=== PATIENT | male | born 1980 | race Caucasian/White ===

== ENCOUNTER → 2016-10-28 | Outpatient (CLI) | payer OTHER ==
[~2016-10-28] MED LIST: ALEVE220 MG PO; ASPIRIN81 M1 PO; IMDUR SA30 MG PO; Lopressor25 MG PO; NEXIUM40 MG PO; PRAVACHOL40 MG PO; TOUJEO SOL300 UNIT/1 SC; ZESTRIL40 MG PO; ZYRTEC10 MG PO
--- NOTE | ~2016-10-28 | ST ---
[place], [place] EXERCISE STRESS TEST REPORT NAME: PABLITO BARRAGAN UNIT #: [id number] ROOM: DOCTOR: MACARIO LIU MD BIRTHDATE: [birth year] DOS: 10/28/2016 REFERRING PHYSICIAN: Dr. Gaines INDICATION: Central chest pain, shortness of breath on exertion. The patient underwent standard protocol Lexiscan stress EKG. The patient's baseline EKG showed normal sinus rhythm. No ischemic changes. The patient's heart rate was 75 at baseline with a blood pressure 122/80. The patient's peak heart rate was 90 with a blood pressure 118/72. The patient had no chest pain, no ischemic changes. No arrhythmias were noted. SUMMARY OF FINDINGS: Unremarkable Lexiscan stress EKG. Please see separate report for nuclear perfusion scan results. MACARIO LIU MD CM:STRESS:EXERCISE STRESS TEST REPORT [id number] MACARIO LIU MD
== END | disposition home or self-care (01) ==
LOC: CARD 02:52
DX: I08.1 Rheumatic disorders of both mitral and tricuspid valves (principal); R53.81 Other malaise

== ENCOUNTER → 2016-11-03 | Outpatient (CLI) | payer OTHER ==
--- NOTE | ~2016-11-03 | WRIGHTHP ---
[place], [place] PATIENT HISTORY AND PHYSICAL EXAM NAME: PABLITO BARRAGAN [facility] #: [id number] UNIT #: [id number] ROOM: DOCTOR: AILYN MarioKATHY BIRTHDATE: [birth year] DOS: 11/03/2016 This is a new wound care evaluation. CHIEF COMPLAINT: Chronic open wounds near the right lower extremity. HISTORY OF PRESENT ILLNESS: This is a 35-year-old male with type 2 diabetes that is uncontrolled, who was referred to us by his primary care physician for a chronic right lower extremity wound of the anterior leg. Apparently, he has had this area for several months now that is excoriated, reddened, at times very dry and at times very weepy, that is not particularly painful, but has been getting worse recently. He did have a recent abrasion also of the area after he accidentally bumped it with the car door. He has been using Neosporin on it and hydrogen peroxide to clean the wound and has noticeable right lower extremity swelling. His mother is with him who also filled in some of the medical history and states that he has had this chronic swelling of the right lower extremity and the calf is noticeably bigger than the left leg and it has been present for several years now, it has not gotten worse recently, but has been chronically enlarged. His diabetes is markedly uncontrolled with hemoglobin A1c of over 14 per patient report. PAST MEDICAL HISTORY: Significant for multiple problems. He has type 2 diabetes, hypertension, atherosclerotic heart disease and angina. He is a type 2 diabetic, also has hyperlipidemia, has had coronary artery disease, had a cardiac catheterization in the past that showed some narrowing, but not enough to need intervention. He has undergone a recent stress test and echocardiogram. The echocardiogram report shows a normal ejection fraction and a stress test was done as well, which was normal perfusion. No evidence of myocardial ischemia or scar was noted. PAST SURGICAL HISTORY: Status post appendectomy, wisdom tooth extraction and laser eye surgery. ALLERGIES: No known drug allergies. MEDICATIONS: The current medications that he is on are multiple. He is completing a course of Bactrim Double Strength 1 tablet p.o. b.i.d., Zyrtec 10 mg daily, lisinopril 40 daily, metoprolol 25 daily, Humalog sliding scale, Aleve 220 daily every 12 hours p.r.n., aspirin 81 daily, esomeprazole 40 mg daily, isosorbide mononitrate 30 mg p.o. daily, pravastatin 40 mg p.o. daily, cephalexin 500 p.o. b.i.d. and Toujeo 60 units subq b.i.d. SOCIAL HISTORY: He is a nonsmoker, nondrinker. FAMILY HISTORY: Significant for hypertension and diabetes in his mother and maternal grandmother. SOCIAL HISTORY: He is a nonsmoker. He is . He does not drink alcohol. REVIEW OF SYSTEMS: He denies any documented fever. He has chronic chills, [place], [place] PATIENT HISTORY AND PHYSICAL EXAM NAME: PABLITO BARRAGAN UNIT #: [id number] ROOM: DOCTOR: KATHY ROBERTSON M.D. BIRTHDATE: [birth year] which are chronic and have not changed in anyway recently. He denies any nausea or vomiting, abdominal pains. He said the antibiotics he really did not notice any much improvement with the way the skin or wounds looked with the antibiotics. They do drain on occasion, mostly seems to be more noticeable after he takes a shower and after ambulating and being up on his feet more so. He has no calf pain. He has some history of chronic chest pains, which is being worked up and has some chronic dyspnea on exertion. He does not report any symptoms of claudication; however, he is not active enough to really notice that. PHYSICAL EXAMINATION: GENERAL: Shows a well-developed, well-nourished male in no acute distress, pleasant and cooperative to examination. VITAL SIGNS: Stable. Temperature is 97.7, pulse of 80, respirations 18, blood pressure is elevated at 138/94. HEENT: Extraocular movements are intact. Sclerae are anicteric. Oropharynx is clear. NECK: There is no JVD. LUNGS: Clear to auscultation. CARDIOVASCULAR: S1, S2 regular rate and rhythm. ABDOMEN: Obese, soft and nontender. EXTREMITIES: He has edema bilaterally, but much more pronounced on the right leg than the left. Pulses are difficult to feel. His foot is warm. He has no calf pain. He has got good capillary refill. He did have an ANIL of 1.37 on the right and 1.30 on the left. He does have some decreased sensation on his feet with monofilament testing noted. NEUROLOGIC: He appears alert, oriented and appropriate. He does have an open area on his right leg. It is mostly measuring 12 x 20 x 0.1, it is actually very clustered area where there is an area along the anterior and posterior leg that is circumferentially almost, but has the appearance of a stasis dermatitis where there are areas of denuded skin and loss of epidermis due to weeping and it does have scaly appearance as well as the few open areas that are noted and chronic erythema is noted as well. It does not appear acutely tender. It is not tender to touch. The patient denies any pain. It is not acutely warm either. He has a few open areas scattered throughout that measurement that are just superficial and epidermal sloughing. No debridement was done today. His most recent lab work was about a month ago. His BUN is 19, creatinine is 1.02, glucose of 382. His cholesterol was 444, triglycerides are 570, albumin is low at 2.2. LFTs were within normal limits. White count is 5, hemoglobin is 15.8, platelets are 244. I do not see a hemoglobin A1c done, but per patient report it has been over 14. ASSESSMENT AND PLAN: Chronic wounds of the right lower extremity likely secondary to venous stasis ulcerations. He does have quite a bit of edema and what appears to clinically look like stasis dermatitis. It does not appear to be acutely infected. I would like the patient to stop using Neosporin and to stop using hydrogen peroxide to clean the wound. I did explain this to the patient and his significant other who is here with him. We will go ahead and use Adaptic to the open areas and Puracol for now and have him use the Tubigrip for edema control, Aquaphor to the dry scaly areas. I would like him to go [place], [place] PATIENT HISTORY AND PHYSICAL EXAM NAME: PABLITO BARRAGAN UNIT #: [id number] ROOM: DOCTOR: KATHY ROBERTSON M.D. BIRTHDATE: [birth year] ahead and get venous and arterial studies as well and hopefully we will consider doing a compression wrap at the next time he is here. I did explain to him how important it is to go ahead and get his sugar under control. He says he has an appointment [facility] coming up. He also of note had a wound on the right plantar foot area that is measuring 0.5 x 0.1 x 0.3. Apparently, this wound is to be managed by Podiatry. He has got an appointment with them today, so no dressing was applied other than a dry gauze and Kerlix and this was not debrided today. While the patient is here, he is going to be following up with Podiatry for this wound. Follow up in the Wound Clinic in one week. KATYH ROBERTSON MD CM:HISPHYS:PATIENT HISTORY AND PHYSICAL EXAMINATION [id number] KATHY ROBERTSON M.D. 11/03/16 1348 interface
== END | disposition home or self-care (01) ==
LOC: WOUNDCARE 03:12
DX: E11.622 Type 2 diabetes mellitus with other skin ulcer (principal); I87.2 Venous insufficiency (chronic) (peripheral); L97.811 Non-pressure chronic ulcer of other part of right lower leg limited to breakdown of skin; I10 Essential (primary) hypertension; E78.5 Hyperlipidemia, unspecified; I25.10 Atherosclerotic heart disease of native coronary artery without angina pectoris

== ENCOUNTER → 2016-11-09 | Outpatient (CLI) | payer OTHER ==
--- NOTE | ~2016-11-09 | PR ---
[place], [place] PROGRESS NOTE NAME: PABLITO BARRAGAN [facility] #: [id number] UNIT #: [id number] ROOM: DOCTOR: KATHY ROBERTSON M.D. BIRTHDATE: [birth year] DOS: 11/09/2016 CHIEF COMPLAINT: Open wound of the right lower extremity. SUBJECTIVE: This is a 35-year-old male with type 2 diabetes, it is uncontrolled that was seen in the Wound Clinic last week for the first time for chronic lower extremity wound that was quite weepy and excoriated and very erythematous. We had instructed him to stop using chronic Neosporin and hydrogen peroxide. We went with an Adaptic and Puracol and Tubigrip for edema control. Venous and arterial studies were ordered. He just had them done today, so we do not have the actual results yet, but in the meantime, the wound is healed. He has no open areas, it is now weeping and it looks good. OBJECTIVE: VITAL SIGNS: Stable. Temperature is 98.2, pulse is 82, respirations 18, blood pressure is 130/82. So, the wounds have definitely healed as far as the stasis dermatitis area on the right leg. I would recommend to have him use compression stockings on a daily basis and to be removed at night. He will be discharged from the wound clinic at this point. KATHY ROBERTSON MD CM:PNTRANS [id number] KATHY ROBERTSON M.D. 11/10/16 1246 interface
[2016-11-10 10:08] LABS: CREATININE,URINE 53.4 mg/dL (Not Estab.)
== END | disposition home or self-care (01) ==
LOC: LAB 01:21 → US 01:21
PROVIDERS: Internal Medicine
DX: S91.311A Laceration without foreign body, right foot, initial encounter (principal); S91.001A Unspecified open wound, right ankle, initial encounter; I73.9 Peripheral vascular disease, unspecified; E11.65 Type 2 diabetes mellitus with hyperglycemia; X58.XXXA Exposure to other specified factors, initial encounter; Y93.89 Activity, other specified; Y92.89 Other specified places as the place of occurrence of the external cause; Y99.8 Other external cause status

== ENCOUNTER → 2016-11-15 | Outpatient (CLI) | payer OTHER ==
[2016-11-17 10:09] LABS: MICROALBUMIN, 24HR URINE 8927.1 mg/day (<30.0)
== END | disposition home or self-care (01) ==
LOC: LAB 10:12
PROVIDERS: Family Medicine Adult Medicine
DX: R80.9 Proteinuria, unspecified (principal)

== ENCOUNTER → 2017-02-23 | Outpatient (CLI) | payer OTHER | END | disposition home or self-care (01) | LOC: US 10:17 | DX: K76.89 Other specified diseases of liver (principal); K82.8 Other specified diseases of gallbladder ==

== ENCOUNTER → 2017-04-07 | Day surgery (SDC) | payer OTHER ==
[~2017-04-07] VITALS: Ht 177.8 cm; Wt 97.5 kg
[~2017-04-07] MED LIST changes: +METFORMIN1000 MG PO; +PREVACID15 M1 PO; +TRIAMTERENE & H1 CAP PO; +TRULICITY0.75 MG/0. SC
--- NOTE | ~2017-04-07 | O ---
[place], [place] OPERATIVE NOTE NAME: PABLITO BARRAGAN UNIT #: [id number] ROOM: DOCTOR: SAVANAH MARTIN MD BIRTHDATE: [birth year] DOS: 04/07/2017 GASTROENDOSCOPIC REPORT INDICATIONS: This is a 36-year-old patient who presented with chief complaint of epigastric distress, dyspepsia, right lower quadrant pain. FAMILY HISTORY: Noncontributory. ALLERGIES: No known medication. PAST MEDICAL HISTORY: Diabetes, hypertension, hyperlipidemia. PAST SURGICAL HISTORY: Lymph node resection from neck and appendectomy. PROCEDURE: Today's procedure part of investigation is panendoscopy and colonoscopy. PREMEDICATION: Versed and Diprivan. SCOPE: Olympus folding gastroscope Q10 video. REPORT: After putting the patient in left lateral position and application of lubricant to the scope, the scope was introduced. Thereafter, under direct visualization, advanced through the length of esophagus without difficulty. Gastric pouch was entered. Gastritis was seen. Duodenal bulb, second and third part within normal limits. Antral biopsy was obtained, ruling out H. pylori. FINAL DIAGNOSIS: Mild gastritis. PLAN AND DISCUSSION: We are going to proceed with colonoscopy. COLONOSCOPY INDICATIONS: The patient has presented with right lower quadrant pain, undergoing investigation. PROCEDURE: Today's procedure part of investigation is colonoscopy. PREMEDICATION: Versed and Diprivan. SCOPE: Olympus folding colonoscope 10L video. REPORT: After putting the patient in left lateral position and application of lubricant to the scope, the scope was introduced. Thereafter, under direct visualization, advanced through the length of colon without difficulty. Base of cecum explored, appendiceal orifice identified, ileocecal valve was defined. Terminal ileum was scoped. There was no pathology. Random biopsies of the colon obtained. The patient extubated, tolerated the procedure well. [place], [place] OPERATIVE NOTE NAME: PABLITO BARRAGAN UNIT #: [id number] ROOM: DOCTOR: SAVANAH MARTIN MD BIRTHDATE: [birth year] IMPRESSION: Normal colonoscopic examination, status post biopsy. Ambiguous right lower quadrant pain. PLAN AND DISCUSSION: Right lower quadrant pain could be radiating pain from nodular liver and this patient requires further followup and liver biopsies and managements in a tertiary hospital for future continuity of the care. DIET: Regular 1800 ADA. SAVANAH MARTIN MD CM:LEXIEORD:OPERATIVE NOTE [id number] SAVANAH MARTIN MD 04/07/17 0949 interface
[2017-04-07 08:02] VITALS: BP 149/97
[2017-04-07 09:15] VITALS: BP 95/51
[2017-04-07 09:29] VITALS: BP 112/61
[2017-04-07 09:44] VITALS: BP 123/72
== END ==
LOC: SDC 04-01 13:15
DX: K29.50 Unspecified chronic gastritis without bleeding (principal); R10.31 Right lower quadrant pain; E11.40 Type 2 diabetes mellitus with diabetic neuropathy, unspecified; I10 Essential (primary) hypertension; E78.5 Hyperlipidemia, unspecified; Z98.890 Other specified postprocedural states; K21.9 Gastro-esophageal reflux disease without esophagitis; Z90.49 Acquired absence of other specified parts of digestive tract; Z82.49 Family history of ischemic heart disease and other diseases of the circulatory system; Z83.3 Family history of diabetes mellitus

== ENCOUNTER → 2018-07-06 | Outpatient (CLI) | payer OTHER ==
[~2018-07-06] MED LIST changes: +ACETAMINOPHEN500 M5 PO; +CYMBALTA60 MG PO; +MULTIVITAMINS1 EAC5 PO; +PHARMASSURE FO0.4 MG PO; +TOUJEO SOL300 UNIT/1 SQ
--- NOTE | ~2018-07-06 | ST ---
[place], [place] EXERCISE STRESS TEST REPORT NAME: PABLITO BARRAGAN [facility] #: [id number] UNIT #: [id number] ROOM: DOCTOR: ERLIN DAVIES,ALONSO BIRTHDATE: [birth year] DOS: 07/06/2018 LEXISCAN STRESS TEST REASON FOR TEST: Shortness of breath. PHYSICAL EXAMINATION: NECK: Supple. LUNGS: Clear anteriorly. HEART: Regular rhythm. PROTOCOL: Lexiscan protocol. Maximum heart rate 88, peak blood pressure 130/88. SYMPTOMS: The patient is chest pain free. EKG: Resting EKG showed sinus rhythm. Stress EKG showed no ischemia, no arrhythmias. CONCLUSION: Clinically, the patient is chest pain free. EKG nonischemic. POST-STRESS COMPLICATIONS: None. The patient received total of 0.4 mg Lexiscan. ALONSO KERN MD CM:STRESS:EXERCISE STRESS TEST REPORT [id number] ALONSO KERN MD
--- NOTE | 2018-07-06 10:00 | NUR ---
INFORMED CONSENT OBTAINED FOR LEXISCAN NUCLEAR STRESS TEST WITH DR. KERN. RESTING EKG NSR WITH A RESTING HR OF 72 WITH BP OF 124/98. LUNGS CLEAR WITH SPO2 OF 100% ON ROOM AIR. PT COMPLETED A 1:00 LEXISCAN PROTOCOL RECEIVING LEXISCAN 0.4 MG IV OVER 10 SECONDS. HAD NO CHEST PAIN OR ANY EKG CHANGES. HAD C/O OF WARM FEELING AND ABDOMINAL CRAMPING THAT WAS RELIEVED IN RECOVERY. HAD A PEAK HR OF 86 WITH BP OF 124/82. LAST RECOVERY HR OF 88 WITH BP OF 130/88. AWAITING SCANNING IN STABLE CONDITION
== END | disposition home or self-care (01) ==
LOC: CARD 01:09
DX: R06.09 Other forms of dyspnea (principal)

== ENCOUNTER 2018-10-04 23:21 | Emergency (ER) | payer OTHER ==
[~2018-10-04] VITALS: Ht 175.2 cm; Wt 99.8 kg
[2018-10-05 00:40] LABS: BASO # 0.1 10*3/uL (0.0-0.1); BASO % 0.8 % (0.0-1.0); EOS # 0.2 10*3/uL (0.0-0.4); EOS % 3.3 % (1.0-4.0); HEMATOCRIT 35.9 % (42.0-52.0); HEMOGLOBIN 11.8 g/dl (14.0-18.0); LYMPH # 1.6 10*3/uL (1.3-4.4); LYMPH % 25.6 % (27.0-41.0); MEAN CORPUSCULAR HGB 28.9 pg (27.0-31.0); MEAN CORPUSCULAR HGB CONC 32.9 g/dl (33.0-37.0); MEAN PLATELET VOLUME 9.1 fl (9.6-12.3); MONO # 0.6 10*3/uL (0.1-1.0); NEUT # 3.8 10*3/uL (2.3-7.9); NEUT % 59.8 % (47.0-73.0); PLATELET COUNT AUTOMATED 242 10*3/uL (130-400); RED BLOOD COUNT 4.08 10*6/uL (4.50-5.90); RED CELL DISTRI WIDTH 12.6 % (0-14.5); WHITE BLOOD COUNT 6.3 10*3/uL (4.8-10.8)
[2018-10-05 00:54] LABS: ALBUMIN 2.2 gm/dl (3.1-4.5); CREATININE 2.43 mg/dL (0.70-1.30); POTASSIUM 4.5 mmol/L (3.5-5.1); TOTAL PROTEIN 6.2 gm/dL (6.4-8.2)
[2018-10-05 01:26] LABS: BILIRUBIN NEGATIVE (NEGATIVE); BLOOD 2+ (NEGATIVE); CLARITY CLEAR (CLEAR); COLOR YELLOW (YELLOW); GLUCOSE 1+ (NEGATIVE); KETONE NEGATIVE (NEGATIVE); LEUKO ESTERASE NEGATIVE (NEGATIVE); NITRITE NEGATIVE (NEGATIVE); SPECIFIC GRAVITY 1.015 (1.005-1.030); UROBILINOGEN 0.2 E.U./dl (0.2-1.0)
[2018-10-05 01:33] LABS: BACTERIA TRACE; EPITHELIAL CELLS 0-2; WBC 0-2 wbc/hpf (0-5)
== END 2018-10-05 02:21 | disposition home or self-care (01) ==
LOC: ED 23:21
PROVIDERS: Nurse Practitioner
DX: I12.9 Hypertensive chronic kidney disease with stage 1 through stage 4 chronic kidney disease, or unspecified chronic kidney disease (principal); N18.9 Chronic kidney disease, unspecified; E11.65 Type 2 diabetes mellitus with hyperglycemia; G43.909 Migraine, unspecified, not intractable, without status migrainosus; Z91.048 Other nonmedicinal substance allergy status; Z79.82 Long term (current) use of aspirin; Z79.899 Other long term (current) drug therapy; Z90.49 Acquired absence of other specified parts of digestive tract

== ENCOUNTER → 2018-11-22 | Outpatient (CLI) | payer OTHER ==
[~2018-11-22] MED LIST changes: +DOXYCYCLINE100 M3 PO
== END | disposition home or self-care (01) ==
LOC: CARD 14:51
DX: R06.09 Other forms of dyspnea (principal)

== ENCOUNTER → 2018-12-12 | Outpatient (CLI) | payer OTHER ==
[2018-12-12 16:09] LABS: BILIRUBIN NEGATIVE (NEGATIVE); BLOOD 2+ (NEGATIVE); CLARITY SL CLOUDY (CLEAR); COLOR YELLOW (YELLOW); GLUCOSE 2+ (NEGATIVE); KETONE NEGATIVE (NEGATIVE); LEUKO ESTERASE NEGATIVE (NEGATIVE); NITRITE NEGATIVE (NEGATIVE); UROBILINOGEN 0.2 E.U./dl (0.2-1.0)
[2018-12-12 16:11] LABS: BASO # 0.1 10*3/uL (0.0-0.1); BASO % 0.8 % (0.0-1.0); EOS # 0.3 10*3/uL (0.0-0.4); EOS % 3.9 % (1.0-4.0); HEMATOCRIT 37.1 % (42.0-52.0); HEMOGLOBIN 11.9 g/dl (14.0-18.0); LYMPH # 1.7 10*3/uL (1.3-4.4); LYMPH % 22.4 % (27.0-41.0); MEAN CELL VOLUME 89.8 fl (80.0-94.0); MEAN CORPUSCULAR HGB 28.8 pg (27.0-31.0); MEAN CORPUSCULAR HGB CONC 32.1 g/dl (33.0-37.0); MEAN PLATELET VOLUME 9.4 fl (9.6-12.3); MONO # 0.9 10*3/uL (0.1-1.0); MONO % 11.9 % (3.0-9.0); NEUT # 4.5 10*3/uL (2.3-7.9); NEUT % 60.2 % (47.0-73.0); PLATELET COUNT AUTOMATED 274 10*3/uL (130-400); RED BLOOD COUNT 4.13 10*6/uL (4.50-5.90); RED CELL DISTRI WIDTH 13.2 % (0-14.5); WHITE BLOOD COUNT 7.4 10*3/uL (4.8-10.8)
[2018-12-12 16:24] LABS: RBC 21-30 rbc/hpf (0-2)
[2018-12-12 16:25] LABS: BACTERIA TRACE; EPITHELIAL CELLS 0-2
[2018-12-12 16:43] LABS: ALBUMIN 2.3 gm/dl (3.1-4.5); CREATININE 2.85 mg/dL (0.70-1.30)
[2018-12-12 16:49] LABS: VITAMIN D, 25-HYDROXY 13.3 ng/mL (30-100)
[2018-12-12 16:50] LABS: FERRITIN 265.7 ng/mL (22.0-322.0); PTH INTACT 67.8 pg/mL (18.5-88.0)
== END | disposition home or self-care (01) ==
LOC: LAB 14:41
PROVIDERS: Internal Medicine Nephrology
DX: N25.81 Secondary hyperparathyroidism of renal origin (principal); E11.22 Type 2 diabetes mellitus with diabetic chronic kidney disease; D63.1 Anemia in chronic kidney disease; N18.3 Chronic kidney disease, stage 3 (moderate)

== ENCOUNTER → 2018-12-14 | Outpatient (CLI) | payer OTHER | END | disposition home or self-care (01) | LOC: US 11:30 → LAB 11:36 → US 11:36 | DX: R36.1 Hematospermia (principal) ==

== ENCOUNTER → 2019-01-13 | Outpatient (CLI) | payer OTHER | END | disposition home or self-care (01) | LOC: D 10:03 | DX: E11.65 Type 2 diabetes mellitus with hyperglycemia (principal) ==

== ENCOUNTER → 2019-01-31 | Outpatient (CLI) | payer OTHER | END | disposition home or self-care (01) | LOC: RAD 15:36 | DX: M25.552 Pain in left hip (principal); M54.42 Lumbago with sciatica, left side ==

== ENCOUNTER 2019-03-21 10:50 | Inpatient (IN) | payer OTHER ==
[~2019-03-21] VITALS: Ht 175.3 cm; Wt 132.0 kg
[2019-03-21] VITALS (9 sets, daily range): BP systolic 152–175; BP diastolic 88–101
[~2019-03-21 10:50] MED LIST changes: +CYMBALTA30 MG PO; -CYMBALTA60 MG PO; +TRULICITY1.5 MG/0.5 SC
[2019-03-21 11:39] LABS: BASO % 0.6 % (0.0-1.0); EOS # 0.2 10*3/uL (0.0-0.4); EOS % 4.2 % (1.0-4.0); HEMATOCRIT 35.9 % (42.0-52.0); HEMOGLOBIN 11.7 g/dl (14.0-18.0); LYMPH # 1.1 10*3/uL (1.3-4.4); LYMPH % 20.4 % (27.0-41.0); MEAN CELL VOLUME 88.2 fl (80.0-94.0); MEAN CORPUSCULAR HGB 28.7 pg (27.0-31.0); MEAN CORPUSCULAR HGB CONC 32.6 g/dl (33.0-37.0); MEAN PLATELET VOLUME 8.8 fl (9.6-12.3); MONO # 0.5 10*3/uL (0.1-1.0); MONO % 9.6 % (3.0-9.0); NEUT # 3.5 10*3/uL (2.3-7.9); NEUT % 64.8 % (47.0-73.0); PLATELET COUNT AUTOMATED 238 10*3/uL (130-400); RED BLOOD COUNT 4.07 10*6/uL (4.50-5.90); RED CELL DISTRI WIDTH 12.5 % (0-14.5); WHITE BLOOD COUNT 5.4 10*3/uL (4.8-10.8)
[2019-03-21 11:55] LABS: ALBUMIN 2.8 gm/dl (3.1-4.5); CREATININE 2.78 mg/dL (0.70-1.30); POTASSIUM 5.8 mmol/L (3.5-5.1); TOTAL PROTEIN 6.8 gm/dL (6.4-8.2)
--- NOTE | 2019-03-21 12:09 | NUR ---
PATIENT RESTING WITH SHIRT OVER HEAD. TURNED LIGHTS DOWN FOR COMFORT.
--- NOTE | 2019-03-21 15:21 | NUR ---
DR PAUL IN ROOM ASSESSING PATIENT.
--- NOTE | 2019-03-21 16:20 | NUR ---
Time: 1619 A 38 year old MALE admitted to 5E under services of GEETA PERES DO. Pt. arrived via bed from ER. Chief complaint: ACUTE ON CHRONIC RENAL FAILURE, HYPERKALEMIA. BRANNON DODSON
--- NOTE | 2019-03-21 17:47 | NUR ---
CALLED DR. BANKS ANSWERING SERVICE THEY WILL NOTIFY HIM OF CONSULT.
--- NOTE | 2019-03-21 17:51 | NUR ---
DR. GARDUNO ON THE FLOOR AWARE OF CONSULT.
--- NOTE | 2019-03-21 18:00 | NUR ---
PT AMBULATORY TO BATHROOM. IVF FROM ER INFUSING. NO C/O AT THIS TIME. CALL LIGHT IN REACH.
--- NOTE | 2019-03-21 20:00 | NUR ---
PATIENT RESTING IN BED, VOICES NO COMPLAINTS AT THIS TIME. RESPIRATIONS EASY, NON LABORED. BED IN LOWEST POSITION, CALL LIGHT WITHIN REACH. WILL CONTINUE TO MONITOR.
[2019-03-22] VITALS: BP 158/90
--- NOTE | 2019-03-22 04:00 | NUR ---
PATIENT SLEEPING, NO SIGNS OF DISTRESS. RESPIRATIONS EASY, NON LABORED. BED IN LOWEST POSITION, CALL LIGHT WITHIN REACH. WILL CONTINUE TO MONITOR.
[2019-03-22 06:19] LABS: BASO # 0.1 10*3/uL (0.0-0.1); BASO % 0.9 % (0.0-1.0); EOS # 0.3 10*3/uL (0.0-0.4); EOS % 4.4 % (1.0-4.0); HEMATOCRIT 37.8 % (42.0-52.0); HEMOGLOBIN 12.1 g/dl (14.0-18.0); LYMPH # 1.8 10*3/uL (1.3-4.4); LYMPH % 26.7 % (27.0-41.0); MEAN CELL VOLUME 89.2 fl (80.0-94.0); MEAN CORPUSCULAR HGB 28.5 pg (27.0-31.0); MEAN PLATELET VOLUME 8.9 fl (9.6-12.3); MONO # 0.7 10*3/uL (0.1-1.0); MONO % 9.8 % (3.0-9.0); NEUT # 3.9 10*3/uL (2.3-7.9); NEUT % 57.6 % (47.0-73.0); PLATELET COUNT AUTOMATED 258 10*3/uL (130-400); RED BLOOD COUNT 4.24 10*6/uL (4.50-5.90); RED CELL DISTRI WIDTH 12.7 % (0-14.5); WHITE BLOOD COUNT 6.8 10*3/uL (4.8-10.8)
[2019-03-22 06:35] LABS: CREATININE 2.37 mg/dL (0.70-1.30); PHOSPHOROUS 4.1 mg/dL (2.5-4.9); POTASSIUM 5.2 mmol/L (3.5-5.1)
[2019-03-22 06:41] LABS: THYROID STIM HORMONE (HS) 2.8 uIU/ml (0.358-4.75)
[2019-03-22 08:00] VITALS: BP 157/93
--- NOTE | 2019-03-22 08:45 | NUR ---
PT RESTING IN BED WITH HOB ELEVATED. RESP-EASY AND REGULAR. IVF INFUSING WITH NO PROBLEM. DR. COATES IN TO SEE PT. CALL LIGHT IN REACH. SEE SHIFT ASSESSMENT.
[2019-03-22] MEDS ORDERED: SYNTHROID25 MCG PO (08:52)
[2019-03-22] MEDS ORDERED: ZESTRIL10 MG PO (08:53)
[2019-03-22] MEDS ORDERED: BUMETANIDE2 MG PO (08:53)
[2019-03-22] MEDS ORDERED: ATOMOXETINE HCL60 MG PO (08:53)
[2019-03-22] MEDS ORDERED: VITAMIN D310000 UNI1 PO (08:54)
[2019-03-22] MEDS ORDERED: PRINIVIL10 MG PO (08:55)
--- NOTE | 2019-03-22 09:00 | NUR ---
Legal Document Specialist in to talk to patient. Patient states lives at home with . There are few steps in the home. Physician: lionel mckeon Pharmacy: Home health services: none Patient's level of ADLs: INDEPENDENT Patient has working utilities: all working DME: none Follow-up physician's appointment after d/c: will be made by hospitalist nurse director upon discharge Does patient want to access PORTAL?: no Discharge plan discussed with patient, he states he lives at home with , he is independent in adls and ambulation, he states he will return home when able and denies any home needs, case managment will follow. ELHAM ROPER
--- NOTE | 2019-03-22 09:04 | NUR ---
PABLITO BARRAGAN [id number] Please refer to the physician's history and physical for past medical history, comorbid conditions, and allergies. Diagnosis: ELEVATED BLOOD SUGAR Max Score: 21,LOW OR NO RISK WOUND DESCRIPTIONS: Wound Number: 1 Location of the wound: right lower extremity Type of wound: scab Thickness: Partial Size: 1.5cm x 4.7cm x <0.1cm Tunneling: none Undermining: none Sinus Tract: none Presence of Exudate: none Amount: None Color: Brown, red Odor: None Periwound Skin Appearance: Normal Wound edges: approximated Pain (associated with wound): none at time of assessment How does patient state this happened? pt stated this has been ongoing and due to his diabetes and he stated that may have bumped the areas he states he used to follow in the wound care center but doesn't do so at this time he stated if he needs to follow up he will do so and make his own appointment. Wound Number: 2 Location of the wound: left lower extremity Type of wound: scab Thickness: Partial Size: 1.5cm x 1.5cm x <0.1cm Tunneling: none Undermining: none Sinus Tract: none Presence of Exudate: none Amount: None Color: Brown, red Odor: None Periwound Skin Appearance: Normal Wound edges: approximated Pain (associated with wound): none at time of assessment How does patient state this happened? pt stated this has been ongoing and due to his diabetes and he stated that may have bumped the areas he states he used to follow in the wound care center but doesn't do so at this time he stated if he needs to follow up he will do so and make his own appointment. Wound Number: 1 Location of the wound: left ac Type of wound: skin tear Thickness: Partial Size: 0.4cm x 0.5cm x 0.1cm Tunneling: none Undermining: none Sinus Tract: none Presence of Exudate: none Amount: None Color: Red Odor: None Periwound Skin Appearance: Normal Wound edges: approximated Pain (associated with wound): none at time of assessment How does patient state this happened? pt stated this is from tape being removed last wednesday from a lab draw Wound Number: 4 Location of the wound: left 5th toe Type of wound: DTI Size: 0.6cm x 0.4cm x <0.1cm Tunneling: none Undermining: none Sinus Tract: none Presence of Exudate: none Amount: None Color: red, purple Odor: None Periwound Skin Appearance: Normal Wound edges: approximated Pain (associated with wound): none at time of assessment How does patient state this happened? pt stated this has been ongoing and due to his diabetes and he stated that may have bumped the areas he states he used to follow in the wound care center but doesn't do so at this time he stated if he needs to follow up he will do so and make his own appointment. Surface the patient is resting on: Isoflex SKIN PREVENTION RECOMMENDATION: 1. Pressure redistribution support surface as appropriate 2. Elevate heels 3. Remove boots/TEDS every shift and reapply 4. Head of bed 30 degrees as tolerated 5. Assess nutrition and hydration 6. Manage moisture 7. Avoid the use of containment devices while in bed 8. Use absorptive products on surfaces limit layers of linens on bed 9. Turn and reposition every 1-2 hours in bed and every 1 hour in chair as tolerated 10. Weight shifts every 15 minutes while up in chair 11. Offloading with pillows or device to keep heels elevated off bed 12. Monitor skin at least every shift 13. Inspect under medical devices twice a day WOUND TREATMENT RECOMMENDATIONS: Partial thicknes guidelines: Cleanse right and left lower extremity with nss and apply sureprep around the wound hydrogel to wound bed and cover with optifoam gentle every 2 days and prn for soiling. Skin tear guidelines: Cleanse left ac with nss and apply sureprep around the wound hydrogel to wound bed and cover with optifoam gentle. DTI guidelines: Apply sureprep to left 5 toe and cover with bandaid daily and prn for soiling. Patient states he will follow up in the wound care center if he needs to and his will set up the appointments he will continue using the treatments he has at home for treatments upon discharge. Heel raiser pro boots to bilateral feet while in bed.
[2019-03-22 09:13] LABS: VITAMIN D, 25-HYDROXY 37.6 ng/mL (30-100)
--- NOTE | 2019-03-22 10:44 | NUR ---
Wound care recommendations given to nurse caring for patient.
--- NOTE | 2019-03-22 11:00 | NUR ---
CALLED DR. HUITRON AWARE WOUND CARE RECOMMENDATIONS ARE AT THE DESK TO BE ORDERED.
--- NOTE | 2019-03-22 11:43 | NUR ---
CALLED DR. HUITRON MADE AWARE BP 182/98 MANUALLY. MADE AWARE PT DIDN'T HAVE LISINOPRIL FROM HOME. SHE WILL TAKE CARE OF IT.
--- NOTE | 2019-03-22 11:52 | NUR ---
MEDICATED WITH LISINOPRIL PER ORDER, SEE EMAR.
[2019-03-22 12:00] VITALS: BP 187/96
--- NOTE | 2019-03-22 12:10 | NUR ---
Discharge instructions reviewed with patient/family. Patient receptive and verbalizes understanding. Follow-up care arranged. Written instructions given to patient/family. HEPLOCK REMOVED 2X2 APPLIED. AMBULATORY OFF THE FLOOR FOR DISCHARGE WITH VISITOR AT HIS SIDE. BRANNON DODSON R
== END 2019-03-22 12:10 | disposition home or self-care (01) | DRG 422 ==
LOC: ED 10:50 → 5E 14:19 → EDHOLD 14:19 → 4E 15:52 → 5E 16:23
PROVIDERS: Physician Assistant; Student in an Organized Health Care Education/Training Program; ADMIT Internal Medicine
DX: E86.0 Dehydration (principal); N17.0 Acute kidney failure with tubular necrosis; E44.0 Moderate protein-calorie malnutrition; E87.5 Hyperkalemia; R74.8 Abnormal levels of other serum enzymes; D64.9 Anemia, unspecified; K21.9 Gastro-esophageal reflux disease without esophagitis; F41.9 Anxiety disorder, unspecified; N18.4 Chronic kidney disease, stage 4 (severe); F32.9 Major depressive disorder, single episode, unspecified; I12.9 Hypertensive chronic kidney disease with stage 1 through stage 4 chronic kidney disease, or unspecified chronic kidney disease; E11.65 Type 2 diabetes mellitus with hyperglycemia; E11.22 Type 2 diabetes mellitus with diabetic chronic kidney disease; E11.69 Type 2 diabetes mellitus with other specified complication; E11.42 Type 2 diabetes mellitus with diabetic polyneuropathy; Z88.8 Allergy status to other drugs, medicaments and biological substances; Z82.49 Family history of ischemic heart disease and other diseases of the circulatory system; Z83.3 Family history of diabetes mellitus; Z90.49 Acquired absence of other specified parts of digestive tract; Z68.41 Body mass index [BMI] 40.0-44.9, adult; Z79.899 Other long term (current) drug therapy

== ENCOUNTER → 2019-03-23 | Outpatient (CLI) | payer OTHER ==
[~2019-03-23] MED LIST changes: +ATOMOXETINE HCL60 MG PO; +BUMETANIDE2 MG PO; +PRINIVIL10 MG PO; +SYNTHROID25 MCG PO; +VITAMIN D310000 UNI1 PO; +ZESTRIL10 MG PO
[2019-03-23 15:57] LABS: BASO # 0.1 10*3/uL (0.0-0.1); BASO % 0.7 % (0.0-1.0); EOS # 0.2 10*3/uL (0.0-0.4); EOS % 2.7 % (1.0-4.0); HEMATOCRIT 34.8 % (42.0-52.0); HEMOGLOBIN 11.2 g/dl (14.0-18.0); LYMPH # 1.4 10*3/uL (1.3-4.4); LYMPH % 19.2 % (27.0-41.0); MEAN CELL VOLUME 90.2 fl (80.0-94.0); MEAN CORPUSCULAR HGB CONC 32.2 g/dl (33.0-37.0); MEAN PLATELET VOLUME 8.9 fl (9.6-12.3); MONO # 0.6 10*3/uL (0.1-1.0); MONO % 8.5 % (3.0-9.0); NEUT # 5.1 10*3/uL (2.3-7.9); NEUT % 68.5 % (47.0-73.0); PLATELET COUNT AUTOMATED 238 10*3/uL (130-400); RED BLOOD COUNT 3.86 10*6/uL (4.50-5.90); RED CELL DISTRI WIDTH 12.6 % (0-14.5); WHITE BLOOD COUNT 7.4 10*3/uL (4.8-10.8)
[2019-03-23 16:18] LABS: URINE CREATININE RANDOM 36.5 mg/dL
[2019-03-23 16:51] LABS: ALBUMIN 2.6 gm/dl (3.1-4.5); CREATININE 3.12 mg/dL (0.70-1.30); CREATININE 3.14 mg/dL (0.70-1.30); PHOSPHOROUS 4.5 mg/dL (2.5-4.9); POTASSIUM 5.3 mmol/L (3.5-5.1)
[2019-03-23 16:58] LABS: VITAMIN D, 25-HYDROXY 35.1 ng/mL (30-100)
[2019-03-23 16:59] LABS: FERRITIN 218.4 ng/mL (22.0-322.0)
[2019-03-23 17:01] LABS: COLOR STRAW (YELLOW)
[2019-03-23 17:02] LABS: BILIRUBIN NEGATIVE (NEGATIVE); BLOOD 1+ (NEGATIVE); CLARITY CLEAR (CLEAR); GLUCOSE NEGATIVE (NEGATIVE); KETONE NEGATIVE (NEGATIVE); LEUKO ESTERASE NEGATIVE (NEGATIVE); NITRITE NEGATIVE (NEGATIVE); SPECIFIC GRAVITY 1.015 (1.005-1.030); UROBILINOGEN 0.2 E.U./dl (0.2-1.0)
== END | disposition home or self-care (01) ==
LOC: LAB 15:29
PROVIDERS: General Practice; Internal Medicine Nephrology
DX: E11.22 Type 2 diabetes mellitus with diabetic chronic kidney disease (principal); I12.9 Hypertensive chronic kidney disease with stage 1 through stage 4 chronic kidney disease, or unspecified chronic kidney disease; N18.4 Chronic kidney disease, stage 4 (severe); D63.1 Anemia in chronic kidney disease; N25.81 Secondary hyperparathyroidism of renal origin; H25.811 Combined forms of age-related cataract, right eye

== ENCOUNTER → 2019-06-08 | Outpatient (CLI) | payer OTHER ==
[2019-06-08 16:13] LABS: BASO # 0.1 10*3/uL (0.0-0.1); BASO % 0.9 % (0.0-1.0); EOS # 0.2 10*3/uL (0.0-0.4); EOS % 3.5 % (1.0-4.0); HEMATOCRIT 33.6 % (42.0-52.0); HEMOGLOBIN 10.9 g/dl (14.0-18.0); LYMPH # 1.4 10*3/uL (1.3-4.4); LYMPH % 20.5 % (27.0-41.0); MEAN CELL VOLUME 86.8 fl (80.0-94.0); MEAN CORPUSCULAR HGB 28.2 pg (27.0-31.0); MEAN CORPUSCULAR HGB CONC 32.4 g/dl (33.0-37.0); MEAN PLATELET VOLUME 8.9 fl (9.6-12.3); MONO # 0.6 10*3/uL (0.1-1.0); MONO % 9.2 % (3.0-9.0); NEUT # 4.5 10*3/uL (2.3-7.9); NEUT % 64.5 % (47.0-73.0); PLATELET COUNT AUTOMATED 423 10*3/uL (130-400); RED BLOOD COUNT 3.87 10*6/uL (4.50-5.90); RED CELL DISTRI WIDTH 12.8 % (0-14.5); WHITE BLOOD COUNT 6.9 10*3/uL (4.8-10.8)
[2019-06-08 16:13] LABS: BILIRUBIN NEGATIVE (NEGATIVE); BLOOD 1+ (NEGATIVE); CLARITY CLEAR (CLEAR); COLOR YELLOW (YELLOW); GLUCOSE 3+ (NEGATIVE); KETONE NEGATIVE (NEGATIVE); SPECIFIC GRAVITY 1.015 (1.005-1.030)
[2019-06-08 16:14] LABS: LEUKO ESTERASE NEGATIVE (NEGATIVE); NITRITE NEGATIVE (NEGATIVE); UROBILINOGEN 0.2 E.U./dl (0.2-1.0)
[2019-06-08 16:23] LABS: URINE CREATININE RANDOM 34.1 mg/dL
[2019-06-08 16:31] LABS: BACTERIA TRACE; WBC 0-2 wbc/hpf (0-5)
[2019-06-08 16:32] LABS: ALBUMIN 2.1 gm/dl (3.1-4.5); CREATININE 3.3 mg/dL (0.70-1.30)
[2019-06-08 16:32] LABS: HYALINE CAST 0-2
[2019-06-08 16:34] LABS: PHOSPHOROUS 4.5 mg/dL (2.5-4.9)
[2019-06-08 16:49] LABS: VITAMIN D, 25-HYDROXY 25.1 ng/mL (30-100)
[2019-06-08 16:50] LABS: FERRITIN 268.7 ng/mL (22.0-322.0); PTH INTACT 107.7 pg/mL (18.5-88.0)
== END | disposition home or self-care (01) ==
LOC: LAB 15:30
PROVIDERS: Internal Medicine Nephrology
DX: I12.9 Hypertensive chronic kidney disease with stage 1 through stage 4 chronic kidney disease, or unspecified chronic kidney disease (principal); E11.22 Type 2 diabetes mellitus with diabetic chronic kidney disease; N18.4 Chronic kidney disease, stage 4 (severe); N25.81 Secondary hyperparathyroidism of renal origin

== ENCOUNTER 2019-07-05 16:58 | Inpatient (IN) | payer OTHER ==
[~2019-07-05] VITALS: Ht 175.3 cm; Wt 118.0 kg
[~2019-07-05 16:58] MED LIST changes: -VITAMIN D310000 UNI1 PO; +VITAMIN D350 MCG PO
[2019-07-05 17:07] VITALS: BP 205/101
[2019-07-05 17:35] LABS: BASO # 0.1 10*3/uL (0.0-0.1); BASO % 0.8 % (0.0-1.0); EOS # 0.2 10*3/uL (0.0-0.4); EOS % 2.3 % (1.0-4.0); HEMATOCRIT 31.3 % (42.0-52.0); LYMPH # 1.4 10*3/uL (1.3-4.4); LYMPH % 19.8 % (27.0-41.0); MEAN CELL VOLUME 86.7 fl (80.0-94.0); MEAN CORPUSCULAR HGB CONC 32.3 g/dl (33.0-37.0); MONO # 0.6 10*3/uL (0.1-1.0); MONO % 8.6 % (3.0-9.0); NEUT # 4.8 10*3/uL (2.3-7.9); NEUT % 67.9 % (47.0-73.0); PLATELET COUNT AUTOMATED 327 10*3/uL (130-400); RED BLOOD COUNT 3.61 10*6/uL (4.50-5.90); RED CELL DISTRI WIDTH 12.9 % (0-14.5); WHITE BLOOD COUNT 7.1 10*3/uL (4.8-10.8)
[2019-07-05 17:46] LABS: ACT PARTIAL THROMBO TIME 34.2 SECONDS (20.0-32.1); INTERNATIONAL NORM RATIO 1.1 (2.0-3.5)
[2019-07-05 17:50] LABS: ALBUMIN 2.1 gm/dl (3.1-4.5); ALKALINE PHOSPHATASE 140 U/L (45-117); BUN 58 mg/dl (7-24); CHLORIDE 107 mmol/L (98-107); CREATININE 3.31 mg/dL (0.70-1.30); LIPASE 112 U/L (73-393); POTASSIUM 5.2 mmol/L (3.5-5.1); SGPT/ALT 26 U/L (12-78); SODIUM 137 mmol/L (136-145); TOTAL PROTEIN 6.8 gm/dL (6.4-8.2)
[2019-07-05 17:55] LABS: SGOT/AST 18 IU/L (3-35)
[2019-07-05 17:56] LABS: TROPONIN I < 0.015 ng/ml (<0.045)
--- NOTE | 2019-07-05 17:59 | NUR ---
EKG COMPLETED ON PATIENT.
--- NOTE | 2019-07-05 19:10 | NUR ---
NURSE TO NURSE REPORT GIVEN TO THIS RN.PT AWAITING ADMISSION.
[2019-07-05 19:13] VITALS: BP 126/63
[2019-07-05 21:00] VITALS: BP 145/68
[2019-07-05 21:15] VITALS: BP 145/68; BP 146/73
--- NOTE | 2019-07-05 21:15 | NUR ---
A 38, admitted to , under the services of GEETA Peres DO with a diagnosis of HYPERTENSIVE EMERGENCY. Chief complaint is HIGH BLOOD PRESSURE, FLUID OVERLOAD. Patient arrived via stretcher from ER. Monitor applied. Initial assessment completed. Vital signs taken and recorded. GEETA PERES DO notified of admission to the unit. Orders received. See assessment for past medical history, medications and allergies. Patient and/or family oriented to unit. [address] visitation policy reviewed. Clothing/patient valuable form completed. KANNAN CRAIG
--- NOTE | 2019-07-05 21:49 | NUR ---
ANSWERING SERVICE NOTIFIED OF NEW CONSULT.
--- NOTE | 2019-07-05 21:52 | NUR ---
REVIEWED PATIENTS LABS WITH . NEW ORDERS RECEIVED. HE STATES HE WILL SEE PATIENT TOMORROW.
[2019-07-05] MEDS ORDERED: DULOXETINE HCL60 MG PO (23:01)
[2019-07-05] MEDS ORDERED: ISOSORBIDE MONO60 MG PO (23:04)
[2019-07-06] VITALS: BP 142/61
[2019-07-06] MEDS ORDERED: ARIPIPRAZOLE5 MG PO (00:48)
[2019-07-06] MEDS ORDERED: GUANFACINE HCL3 MG PO (00:50)
[2019-07-06] MEDS ORDERED: BUMETANIDE1 MG PO (00:51)
[2019-07-06] MEDS ORDERED: BASAG SOL SQ ×2 (00:53→00:54)
--- NOTE | 2019-07-06 00:55 | NUR ---
NOTIFIED PATIENTS MED REC UP TO DATE.
--- NOTE | 2019-07-06 05:10 | NUR ---
PABLITO BARRAGAN [id number] Please refer to the physician's history and physical for past medical history, comorbid conditions, and allergies. Diagnosis: HYPERTENSIVE EMERGENCY Max Score: 23,LOW OR NO RISK WOUND DESCRIPTIONS: Wound Number: 1 Location of the wound: Right outer pa Type of wound: traumatic Thickness: Partial Size: 0.6cm x 1.4cm x 0.1cm Tunneling: none Undermining: none Sinus Tract: none Presence of Exudate: none Amount: None Color: Red Odor: None Periwound Skin Appearance: Erythema Wound edges: approximated Pain (associated with wound): none at time of assessment How does patient state this happened? pt stated this happened about 1 week ago when his recliner popped out and hit him Wound Number: 2 Location of the wound: Right plantar aspect of foot below 5th toe Type of wound: unstageable Thickness: Full Size: 1.5cm x 1.8cm x 0.2cm Tunneling: none Undermining: none Sinus Tract: none Presence of Exudate: none Amount: None Color: Red, yellow, brown Odor: None Periwound Skin Appearance: normal Wound edges: hyperkeratotic rim Pain (associated with wound): none at time of assessment How does patient state this happened? pt stated this happened started about 1 month ago from his shoes Wound Number: 3 Location of the wound: Left outer pa Type of wound: traumatic Thickness: Full Size: 0.9cm x 2.5cm x 0.1cm Tunneling: none Undermining: none Sinus Tract: none Presence of Exudate: none Amount: None Color: Red, yellow Odor: None Periwound Skin Appearance: Erythema Wound edges: approximated Pain (associated with wound): none at time of assessment How does patient state this happened? pt stated this happened about 1 week ago when his recliner popped out and hit him Wound Number: 4 Location of the wound: Right plantar aspect of foot base great toe Type of wound: unstageable Thickness: Full Size: 0.4cm x 0.3cm x 0.1cm Tunneling: none Undermining: none Sinus Tract: none Presence of Exudate: none Amount: None Color: Red, brown Odor: None Periwound Skin Appearance: normal Wound edges: approximated Pain (associated with wound): none at time of assessment How does patient state this happened? pt stated this happened about 1 week ago when his recliner popped out and hit him Wound Number: 6 Location of the wound: Right medial aspect of great toe Type of wound: unstageable Thickness: Partial Size: 0.9cm x 0.4cm x 0.1cm Tunneling: none Undermining: none Sinus Tract: none Presence of Exudate: none Amount: None Color: Red, yellow, brown Odor: None Periwound Skin Appearance: Erythema Wound edges: approximated Pain (associated with wound): none at time of assessment How does patient state this happened? pt stated this happened about 1 week ago when his recliner popped out and hit him Wound Number: 7 Location of the wound: Right lower leg crease of foot Type of wound: medial device related pressure injury (stage 2) Thickness: Partial Size: 0.4cm x 0.9cm x <0.1cm Tunneling: none Undermining: none Sinus Tract: none Presence of Exudate: none Amount: None Color: Red Odor: None Periwound Skin Appearance: Normal Wound edges: approximated Pain (associated with wound): none at time of assessment How does patient state this happened? pt stated this happened from his boot Surface the patient is resting on: Position Pro SKIN PREVENTION RECOMMENDATION: 1. Pressure redistribution support surface as appropriate 2. Elevate heels 3. Remove boots/TEDS every shift and reapply 4. Head of bed 30 degrees as tolerated 5. Assess nutrition and hydration 6. Manage moisture 7. Avoid the use of containment devices while in bed 8. Use absorptive products on surfaces limit layers of linens on bed 9. Turn and reposition every 1-2 hours in bed and every 1 hour in chair as tolerated 10. Weight shifts every 15 minutes while up in chair 11. Offloading with pillows or device to keep heels elevated off bed 12. Monitor skin at least every shift 13. Inspect under medical devices twice a day WOUND TREATMENT RECOMMENDATIONS: Venous and arterial studies to bilateral lower extremites due to non-healing wounds, right medial aspect of great toe Consuld podiatry for possible debridement if studies allow Cleanse right outer pa, left outer pa, right plantar aspect of foot below 5th toe, right lower leg crease of foot,Right plantar aspect of foot base great toe, right medial apsect of great toe with nss and apply sureprep around the wound therahoney to wound bed and cover with optifoam gentle or bandaid every 2 days and prn for soiling Patient states he will follow up with Dr. Venegas upon discharge has an appointment on wednesday. Heel raiser pro boots to bilateral feet while in bed
--- NOTE | 2019-07-06 05:56 | NUR ---
PATIENTS SUGAR 64 WHEN CHECKED. GAVE PATIENT ORANGE JUICE AND WILL RECHECK.
--- NOTE | 2019-07-06 06:51 | NUR ---
PATIENTS SUAGR 135 ON RECHECK.
[2019-07-06 07:00] LABS: BASO # 0.1 10*3/uL (0.0-0.1); BASO % 0.8 % (0.0-1.0); EOS # 0.1 10*3/uL (0.0-0.4); EOS % 2.3 % (1.0-4.0); HEMATOCRIT 30.4 % (42.0-52.0); LYMPH # 1.2 10*3/uL (1.3-4.4); LYMPH % 20.5 % (27.0-41.0); MEAN CELL VOLUME 87.1 fl (80.0-94.0); MEAN CORPUSCULAR HGB 27.8 pg (27.0-31.0); MEAN CORPUSCULAR HGB CONC 31.9 g/dl (33.0-37.0); MEAN PLATELET VOLUME 8.7 fl (9.6-12.3); MONO # 0.5 10*3/uL (0.1-1.0); MONO % 8.2 % (3.0-9.0); NEUT # 4.1 10*3/uL (2.3-7.9); NEUT % 67.7 % (47.0-73.0); PLATELET COUNT AUTOMATED 284 10*3/uL (130-400); RED BLOOD COUNT 3.49 10*6/uL (4.50-5.90); RED CELL DISTRI WIDTH 13.2 % (0-14.5)
[2019-07-06 07:29] LABS: CREATININE 3.2 mg/dL (0.70-1.30); POTASSIUM 4.5 mmol/L (3.5-5.1)
[2019-07-06 09:00] VITALS: BP 170/98
--- NOTE | 2019-07-06 09:00 | NUR ---
Washing Machine Mechanic in to talk to patient. Patient states lives at home with . There are 4 steps in the home. Physician: naty sands [facility] [place] [facility]: none Patient's level of ADLs: INDEPENDENT Patient has working utilities: all working DME: none Follow-up physician's appointment after d/c: will be made by hospitalist nurse director upon discharge Does patient want to access PORTAL?: no Discharge plan discussed with patient, he states he lives at home with his , he is independent in adls and ambulation, he states he will return home when medically stable and denies any home needs, case management will follow. ELHAM ROPER
--- NOTE | 2019-07-06 09:02 | NUR ---
Dr. Rodriguez notified of wound care recommendations.
--- NOTE | 2019-07-06 09:35 | NUR ---
podiatry resident aware of consult
--- NOTE | 2019-07-06 09:43 | NUR ---
podiatry in to see patient, when podiatry finished seeing patient, pt to ultrasound via wheelchair
--- NOTE | 2019-07-06 09:44 | NUR ---
tele removed per order
--- NOTE | 2019-07-06 11:06 | NUR ---
RETURN FROM ULTRASOUND
[2019-07-06 12:00] VITALS: BP 170/90
--- NOTE | 2019-07-06 12:34 | NUR ---
CALLED DR. BANKS OFFICE TO NOTIFY OF ELEVATED BLOOD PRESSURE OF 168/98 AFTER BLOOD PRESSURE MEDICATION TODAY. AWAITING CALL BACK
--- NOTE | 2019-07-06 12:47 | NUR ---
DR. ALAMO HERE TO SEE PATIENT, DISCUSS PATIENT. WILL PLACE ORDERS
[2019-07-06 16:00] VITALS: BP 168/95
--- NOTE | 2019-07-06 19:48 | NUR ---
24 HR chart check completed.
[2019-07-06 20:00] VITALS: BP 154/88
--- NOTE | 2019-07-06 20:00 | NUR ---
ambulating abt room, no distress noted. respirations easy. lungs diminished, clear. pulse ox 100% ra. +1 pitting ble edema. call light within reach. no voiced complaints
--- NOTE | 2019-07-07 00:17 | NUR ---
requested and received tylenol per prn order for complaints of generalized aches and pain rating a 5. call light within reach. will monitor for effectiveness
[2019-07-07 01:44] VITALS: BP 126/68
--- NOTE | 2019-07-07 02:00 | NUR ---
meds appear effective. sleeping. respirations easy. call light within reach
--- NOTE | 2019-07-07 06:20 | NUR ---
BSG 56 WITH REPEAT 50. GIVEN D10 PER PRN ORDER. WILL MONITOR
[2019-07-07 06:31] LABS: BASO # 0.1 10*3/uL (0.0-0.1); BASO % 0.7 % (0.0-1.0); EOS # 0.2 10*3/uL (0.0-0.4); EOS % 2.5 % (1.0-4.0); HEMATOCRIT 34.4 % (42.0-52.0); LYMPH # 2.4 10*3/uL (1.3-4.4); LYMPH % 31.5 % (27.0-41.0); MEAN CELL VOLUME 86.6 fl (80.0-94.0); MEAN CORPUSCULAR HGB 27.2 pg (27.0-31.0); MEAN CORPUSCULAR HGB CONC 31.4 g/dl (33.0-37.0); MEAN PLATELET VOLUME 8.8 fl (9.6-12.3); MONO # 0.9 10*3/uL (0.1-1.0); MONO % 11.1 % (3.0-9.0); NEUT # 4.1 10*3/uL (2.3-7.9); NEUT % 53.8 % (47.0-73.0); PLATELET COUNT AUTOMATED 360 10*3/uL (130-400); RED BLOOD COUNT 3.97 10*6/uL (4.50-5.90); RED CELL DISTRI WIDTH 13.1 % (0-14.5); WHITE BLOOD COUNT 7.7 10*3/uL (4.8-10.8)
[2019-07-07 06:47] LABS: ALBUMIN 2.2 gm/dl (3.1-4.5); CREATININE 3.35 mg/dL (0.70-1.30); POTASSIUM 4.5 mmol/L (3.5-5.1)
--- NOTE | 2019-07-07 07:00 | NUR ---
BSG 89. PATIENT ASYMPTOMATIC. TRANSPORTED OFF FLOOR VIA FOR TESTING
[2019-07-07 08:00] VITALS: BP 185/87
--- NOTE | 2019-07-07 08:09 | NUR ---
PHYSICAL THERAPY Screen received pt admitted from home with hypertensive urgency if pt has a deline in function from baseline please consult PT thank you. Camila Lincoln PT
--- NOTE | 2019-07-07 08:14 | NUR ---
Nursing screen received and chart reviewed. Patient admitted for hypertensive emergency. If patient has a decline in ADLs, transfers, or mobility, please send OT orders. Thank you. Nuris Gatica, OTR/L
--- NOTE | 2019-07-07 10:51 | NUR ---
Nutritional Support Services Note: Pt is eating 100% of all meals. Renal diet as ordered. Wound noted to outer pa. Encouraged healthy eating. BS control and weight loss. Healthy choices and proper portion sizes discussed. Will follow if needed. No other nutrition intervention needed at this time. Priscilla Cruz Rdn Ld
[2019-07-07 12:00] VITALS: BP 153/85
[2019-07-07 16:00] VITALS: BP 156/79
[2019-07-07 20:00] VITALS: BP 151/89
--- NOTE | 2019-07-07 20:00 | NUR ---
AMBULATING ABOUT IN ROOM. NO DISTRESS NOTED. RESPIRATIONS EASY. LUNGS DIMINISHED, CLEAR. PULSE OX 99% RA. +1 BLE EDEMA. DRESSING INTACT RIGHT FOOT. CALL LIGHT WITHIN REACH. NO VOICED COMPLAINTS
--- NOTE | 2019-07-07 20:10 | NUR ---
24 HR chart check completed.
--- NOTE | 2019-07-07 21:26 | NUR ---
MEDICATED WITH TYLENOL PER PRN ORDER FOR COMPLAINTS OF GENERALIZED ACHES AND PAINS RATING A 5. CALL LIGHT WITHIN REACH. WILL MONITOR FOR EFFECTIVENESS
--- NOTE | 2019-07-07 23:10 | NUR ---
STATES RELIEF FROM EARLIER MEDS. RESPIRATIONS EASY. CALL LIGHT WITHIN REACH. NO FURTHER VOICED COMPLAINTS
[2019-07-08] VITALS: BP 127/77
--- NOTE | 2019-07-08 | NUR ---
SLEEPING. NO DISTRESS NOTED. RESPIRATIONS EASY. VSS. CALL LIGHT WITHIN REACH
[2019-07-08 06:13] LABS: BASO # 0.1 10*3/uL (0.0-0.1); BASO % 0.5 % (0.0-1.0); EOS # 0.1 10*3/uL (0.0-0.4); EOS % 0.6 % (1.0-4.0); HEMATOCRIT 34.9 % (42.0-52.0); LYMPH # 1.3 10*3/uL (1.3-4.4); LYMPH % 13.9 % (27.0-41.0); MEAN CORPUSCULAR HGB 27.2 pg (27.0-31.0); MEAN CORPUSCULAR HGB CONC 31.2 g/dl (33.0-37.0); MEAN PLATELET VOLUME 8.8 fl (9.6-12.3); MONO # 0.6 10*3/uL (0.1-1.0); MONO % 5.9 % (3.0-9.0); NEUT # 7.3 10*3/uL (2.3-7.9); NEUT % 78.7 % (47.0-73.0); PLATELET COUNT AUTOMATED 328 10*3/uL (130-400); RED BLOOD COUNT 4.01 10*6/uL (4.50-5.90); RED CELL DISTRI WIDTH 12.9 % (0-14.5); WHITE BLOOD COUNT 9.3 10*3/uL (4.8-10.8)
--- NOTE | 2019-07-08 06:30 | NUR ---
0530: BSG 62, REPEAT 56. PATIENT ASYMTPOMATIC. PROVIDED WITH OJ AT REQUEST INSTEAD OF IV DEXTROSE. REPEAT BSG 166.
[2019-07-08 06:38] LABS: CREATININE 3.44 mg/dL (0.70-1.30); POTASSIUM 4.4 mmol/L (3.5-5.1)
[2019-07-08 08:00] VITALS: BP 151/85
--- NOTE | 2019-07-08 09:00 | NUR ---
MORNING ASSESSMENT COMPLETE. PT DENIES C/O AT THIS TIME. WILL CONITNUE TO MONITOR PT.
[2019-07-08 12:00] VITALS: BP 167/88
[2019-07-08] MEDS ORDERED: METOPROLOL TART50 M1 PO (14:08)
[2019-07-08] MEDS ORDERED: BUMETANIDE2 MG PO (14:08)
[2019-07-08] MEDS ORDERED: APRESOLINE25 MG PO (14:08)
--- NOTE | 2019-07-08 15:02 | NUR ---
[facility] Discharge instructions reviewed with patient/family. Patient receptive and verbalizes understanding. Follow-up care arranged. Written instructions given to patient/family. TRISHA ELIZALDE
== END 2019-07-08 15:02 | disposition home or self-care (01) | DRG 199 ==
LOC: ED 16:58 → 4E 18:43 → EDHOLD 18:43 → 4E 19:32
PROVIDERS: Emergency Medicine; Internal Medicine; Student in an Organized Health Care Education/Training Program; ADMIT Internal Medicine
DX: I16.1 Hypertensive emergency (principal); E87.5 Hyperkalemia; E43 Unspecified severe protein-calorie malnutrition; E83.41 Hypermagnesemia; D64.9 Anemia, unspecified; E11.22 Type 2 diabetes mellitus with diabetic chronic kidney disease; K21.9 Gastro-esophageal reflux disease without esophagitis; N18.4 Chronic kidney disease, stage 4 (severe); I13.0 Hypertensive heart and chronic kidney disease with heart failure and stage 1 through stage 4 chronic kidney disease, or unspecified chronic kidney disease; I50.9 Heart failure, unspecified; E11.42 Type 2 diabetes mellitus with diabetic polyneuropathy; E11.51 Type 2 diabetes mellitus with diabetic peripheral angiopathy without gangrene; I87.2 Venous insufficiency (chronic) (peripheral); F41.9 Anxiety disorder, unspecified; F32.9 Major depressive disorder, single episode, unspecified; L85.9 Epidermal thickening, unspecified; R79.89 Other specified abnormal findings of blood chemistry; E66.01 Morbid (severe) obesity due to excess calories; S80.812A Abrasion, left lower leg, initial encounter; S80.811A Abrasion, right lower leg, initial encounter; X58.XXXA Exposure to other specified factors, initial encounter; Y93.89 Activity, other specified; Y92.89 Other specified places as the place of occurrence of the external cause; Y99.8 Other external cause status; Z83.3 Family history of diabetes mellitus; Z79.82 Long term (current) use of aspirin; Z79.899 Other long term (current) drug therapy; Z79.4 Long term (current) use of insulin; Z68.41 Body mass index [BMI] 40.0-44.9, adult; Z91.048 Other nonmedicinal substance allergy status

== ENCOUNTER 2019-07-23 15:16 | Inpatient (IN) | payer OTHER ==
[~2019-07-23] VITALS: Ht 175.2 cm; Wt 127.0 kg
[~2019-07-23 15:16] MED LIST changes: +APRESOLINE25 MG PO; +ARIPIPRAZOLE5 MG PO; +BASAG SOL SQ; +BUMETANIDE1 MG PO; +DULOXETINE HCL60 MG PO; +GUANFACINE HCL3 MG PO; +ISOSORBIDE MONO60 MG PO; +METOPROLOL TART50 M1 PO
[2019-07-23 15:45] LABS: BASO # 0.1 10*3/uL (0.0-0.1); BASO % 0.6 % (0.0-1.0); EOS # 0.2 10*3/uL (0.0-0.4); EOS % 1.6 % (1.0-4.0); HEMATOCRIT 30.5 % (42.0-52.0); LYMPH # 1.1 10*3/uL (1.3-4.4); LYMPH % 8.4 % (27.0-41.0); MEAN CELL VOLUME 88.2 fl (80.0-94.0); MEAN CORPUSCULAR HGB 27.5 pg (27.0-31.0); MEAN CORPUSCULAR HGB CONC 31.1 g/dl (33.0-37.0); MEAN PLATELET VOLUME 8.6 fl (9.6-12.3); MONO # 1.2 10*3/uL (0.1-1.0); NEUT # 10.6 10*3/uL (2.3-7.9); NEUT % 80.1 % (47.0-73.0); PLATELET COUNT AUTOMATED 400 10*3/uL (130-400); RED BLOOD COUNT 3.46 10*6/uL (4.50-5.90); RED CELL DISTRI WIDTH 13.3 % (0-14.5); WHITE BLOOD COUNT 13.2 10*3/uL (4.8-10.8)
[2019-07-23 15:50] VITALS: BP 172/107
[2019-07-23 15:56] LABS: ACT PARTIAL THROMBO TIME 35.9 SECONDS (20.0-32.1); INTERNATIONAL NORM RATIO 1.1 (2.0-3.5)
[2019-07-23 16:01] LABS: ALBUMIN 2.5 gm/dl (3.1-4.5); ALKALINE PHOSPHATASE 164 U/L (45-117); BUN 77 mg/dl (7-24); CHLORIDE 102 mmol/L (98-107); CREATININE 4.83 mg/dL (0.70-1.30); POTASSIUM 4.8 mmol/L (3.5-5.1); SGOT/AST 20 IU/L (3-35); SGPT/ALT 33 U/L (12-78); SODIUM 135 mmol/L (136-145); TOTAL PROTEIN 7.6 gm/dL (6.4-8.2); TROPONIN I < 0.015 ng/ml (<0.045)
[2019-07-23] MEDS ORDERED: Zaroxolyn,Diul2.5 MG PO (16:52)
[2019-07-23] MEDS ORDERED: ACULAR 0.5%3 ML OPH (16:53)
[2019-07-23] MEDS ORDERED: OFLOXACIN 5 ML5 M1 OP (16:54)
[2019-07-23] MEDS ORDERED: TRULICITY1.5 MG/0.5 SC (16:54)
[2019-07-23] MEDS ORDERED: BUMETANIDE1 MG PO (16:55)
[2019-07-23] MEDS ORDERED: Lopressor25 MG PO (16:57)
[2019-07-23] MEDS ORDERED: PRAVASTATIN SOD40 MG PO (17:01)
[2019-07-23 17:21] VITALS: BP 140/77
--- NOTE | 2019-07-23 17:36 | NUR ---
CONSULT CALLED TO ANSWERING SERVICE.
[2019-07-23 18:26] VITALS: BP 159/87
--- NOTE | 2019-07-23 18:26 | NUR ---
A 38, admitted to 5E, under the services of GEETA Peres DO with a diagnosis of SUBHASH SUPERIMPOSED ON CKD. Chief complaint is CHEST PAIN, NASUEA/VOMITING. Patient arrived via ambulance from ER. Monitor applied. Initial assessment completed. Vital signs taken and recorded. GEETA PERES DO notified of admission to the unit. Orders received. See assessment for past medical history, medications and allergies. Patient and/or family oriented to unit. [facility] visitation policy reviewed. Clothing/patient valuable form completed. PARAG MCNEILL
--- NOTE | 2019-07-23 19:03 | NUR ---
ATTEMPTED TO CALL FOR WOUND CARE ORDERS. NO ANSWER.
--- NOTE | 2019-07-23 19:06 | NUR ---
CONSULT CALLED TO . AWAITING CALL BACK.
--- NOTE | 2019-07-23 19:42 | NUR ---
AWARE OF CONSULT.
[2019-07-23 20:00] VITALS: BP 148/72
--- NOTE | 2019-07-23 20:08 | NUR ---
CALLED BACK. NEW ORDERS FOR LEXISCAN TOMORROW RECD.
--- NOTE | 2019-07-23 20:14 | NUR ---
NOTIFIED DR. TATE OF PATIENT MED REC UP TO DATE. HE STATED TO CALL HIM IF HIS BLOOD PRESSURE STARTS TO RISE. NOTIFIED HIM OF LAST BLOOD PRESSURE. HE STATES THAT'S FINE. NO NEW ORDERS RECIEVED
[2019-07-24] VITALS: BP 157/79
[2019-07-24 06:31] LABS: BASO # 0.1 10*3/uL (0.0-0.1); BASO % 0.5 % (0.0-1.0); EOS # 0.2 10*3/uL (0.0-0.4); EOS % 1.5 % (1.0-4.0); HEMATOCRIT 28.3 % (42.0-52.0); LYMPH # 0.9 10*3/uL (1.3-4.4); LYMPH % 9.3 % (27.0-41.0); MEAN CORPUSCULAR HGB CONC 30.4 g/dl (33.0-37.0); MONO % 9.4 % (3.0-9.0); NEUT % 79.1 % (47.0-73.0); PLATELET COUNT AUTOMATED 337 10*3/uL (130-400); RED BLOOD COUNT 3.18 10*6/uL (4.50-5.90); RED CELL DISTRI WIDTH 13.3 % (0-14.5); WHITE BLOOD COUNT 10.1 10*3/uL (4.8-10.8)
[2019-07-24 06:57] LABS: ACT PARTIAL THROMBO TIME 37.8 SECONDS (20.0-32.1); INTERNATIONAL NORM RATIO 1.1 (2.0-3.5)
[2019-07-24 07:03] LABS: ALBUMIN 2.2 gm/dl (3.1-4.5); CREATININE 4.69 mg/dL (0.70-1.30); FREE T4 1.16 ng/dl (0.76-1.46); POTASSIUM 4.4 mmol/L (3.5-5.1); TOTAL PROTEIN 7.1 gm/dL (6.4-8.2)
[2019-07-24 07:08] LABS: THYROID STIM HORMONE (HS) 1.35 uIU/ml (0.358-4.75)
[2019-07-24 07:30] LABS: VITAMIN D, 25-HYDROXY 19.1 ng/mL (30-100)
[2019-07-24 08:00] VITALS: BP 138/82
--- NOTE | 2019-07-24 10:35 | NUR ---
INFORMED CONSENT SIGNED FOR LEXISCAN STRESS TEST WITH DR. LIU. RESTING EKG NSR, HR 84, BP 156/90. PULSE OX 99% AND LUNGS CLEAR BILATERALLY. COMPLETED ONE MINUTE OF LEXISCAN PROTOCOL RECEIVING LEXISCAN 0.4MG OVER 10 SEC[address] NO ARRHYTHMI[address] OR ST CHANGES NOTED. PT C/O ODD FEELING. LAST RECOVERY HR 89, BP 150/80. WAITING NUCLEAR SCANNING IN STABLE CONDITION.
[2019-07-24 12:00] VITALS: BP 169/93
--- NOTE | 2019-07-24 12:42 | NUR ---
PATIENT IS BACK FROM STRESS TEST. BSG PERFORMED. PATIENT CAUGHT UP ON MORNING MEDICATIONS. NO COMPLAINTS VOICED AT THIS TIME.
--- NOTE | 2019-07-24 12:45 | NUR ---
WOUND DRESSINGS TO BILATERAL FEET. NOT DONE BECAUSE PODIATRY HAS BEEN WAITING FOR PATIENT TO RETURN TO SEE WOUNDS. AWAITING ORDERS.
[2019-07-24 14:00] VITALS: BP 169/93
[2019-07-24 16:00] VITALS: BP 149/79
--- NOTE | 2019-07-24 16:18 | NUR ---
PT RESTING IN BED. NO DISTRESS NOTED. WILL MONITOR NO VOICED C/O
--- NOTE | 2019-07-24 19:30 | NUR ---
REPORT RECEIVED. PT LYING IN BED. DENIES ANY DISTRESS. CALL LIGHT IN REACH
[2019-07-24 20:00] VITALS: BP 166/90
--- NOTE | 2019-07-24 21:30 | NUR ---
PT ON IPAD AT THIS TIME. NO COMPLAINTS VOICED, CALL LIGHT IN REACH
--- NOTE | 2019-07-24 23:30 | NUR ---
PT LYING IN BED WATHING TV. NO S/S OF DISTRESS NOTED, CALL LIGHT IN REACH
[2019-07-25] VITALS (7 sets, daily range): BP systolic 142–178; BP diastolic 74–106
--- NOTE | 2019-07-25 01:56 | NUR ---
TYLENOL GIVEN PER REQUEST FOR COMPLAINTS OF BILATERAL FEET ACHES. WILL MONITOR EFFECTIVENESS
--- NOTE | 2019-07-25 02:35 | NUR ---
TYLENOL EFFECTIVE FOR PAIN PER PT
[2019-07-25 02:37] LABS: BILIRUBIN NEGATIVE (NEGATIVE); BLOOD 2+ (NEGATIVE); CLARITY CLEAR (CLEAR); COLOR STRAW (YELLOW); GLUCOSE 1+ (NEGATIVE); KETONE NEGATIVE (NEGATIVE); LEUKO ESTERASE NEGATIVE (NEGATIVE); NITRITE NEGATIVE (NEGATIVE); PH 6.5 (5.0-9.0); SPECIFIC GRAVITY 1.015 (1.005-1.030); UROBILINOGEN 0.2 E.U./dl (0.2-1.0)
[2019-07-25 03:03] LABS: BACTERIA 1+; COARSE GRANULAR CAST 0-2; RBC 31-40 rbc/hpf (0-2)
--- NOTE | 2019-07-25 04:30 | NUR ---
PT SLEEPING AT THIS TIME, CALL LIGHT IN REACH
[2019-07-25 08:05] LABS: BASO % 0.6 % (0.0-1.0); EOS # 0.3 10*3/uL (0.0-0.4); EOS % 4.4 % (1.0-4.0); HEMATOCRIT 26.3 % (42.0-52.0); LYMPH # 1.2 10*3/uL (1.3-4.4); LYMPH % 17.2 % (27.0-41.0); MEAN CELL VOLUME 88.9 fl (80.0-94.0); MEAN CORPUSCULAR HGB 27.4 pg (27.0-31.0); MEAN CORPUSCULAR HGB CONC 30.8 g/dl (33.0-37.0); MONO # 0.7 10*3/uL (0.1-1.0); NEUT # 4.9 10*3/uL (2.3-7.9); NEUT % 67.5 % (47.0-73.0); PLATELET COUNT AUTOMATED 330 10*3/uL (130-400); RED BLOOD COUNT 2.96 10*6/uL (4.50-5.90); RED CELL DISTRI WIDTH 13.4 % (0-14.5); WHITE BLOOD COUNT 7.2 10*3/uL (4.8-10.8)
[2019-07-25 08:13] LABS: CREATININE 4.66 mg/dL (0.70-1.30); POTASSIUM 4.4 mmol/L (3.5-5.1)
--- NOTE | 2019-07-25 09:01 | NUR ---
BARRAGANPABLITO [id number] Please refer to the physician's history and physical for past medical history, comorbid conditions, and allergies. Diagnosis: ACUTE KIDNEY INJURY SUPERIMPOSED ON CHRONIC KIDNEY Mxa Score: 20,LOW OR NO RISK WOUND DESCRIPTIONS: This nurse along with with Jonna Florez RN evaluated patient for skin impairments. Spoke with Dr. Huffman he stated that he just changed the dressings prior to us entering the room. Patient is supposed to follow up with vascular upon discharge and patient follows with Dr. Venegas. Surface the patient is resting on: Isoflex SKIN PREVENTION RECOMMENDATION: 1. Pressure redistribution support surface as appropriate 2. Elevate heels 3. Remove boots/TEDS every shift and reapply 4. Head of bed 30 degrees as tolerated 5. Assess nutrition and hydration 6. Manage moisture 7. Avoid the use of containment devices while in bed 8. Use absorptive products on surfaces limit layers of linens on bed 9. Turn and reposition every 1-2 hours in bed and every 1 hour in chair as tolerated 10. Weight shifts every 15 minutes while up in chair 11. Offloading with pillows or device to keep heels elevated off bed 12. Monitor skin at least every shift 13. Inspect under medical devices twice a day WOUND TREATMENT RECOMMENDATIONS: Podiatry is following patient at this time and orders are entered in the chart.
--- NOTE | 2019-07-25 09:37 | NUR ---
SLIDE FASTENER CHAIN ASSEMBLER received call from the patients pillowcase folder [place] [phone] for an update on patients status. SLIDE FASTENER CHAIN ASSEMBLER provided update.
--- NOTE | 2019-07-25 15:23 | NUR ---
Integrity Assessor in to talk to patient. Patient states lives at HOME with . There are SEVERAL steps in the home. Physician: Olegario ALDRICH Pharmacy: [facility] Home health services: [facility] Patient's level of ADLs: MINIMAL ASSIST Patient has working utilities: YES DME: [facility] Follow-up physician's appointment after d/c: WILL BE MADE BY HOSPITALIST NURSE DIRECTOR ON DISCHARGE Does patient want to access PORTAL?: NO Discharge plan PT LIVES AT HOME WITH AND KIDS AND IS INDEPENDENT IN HIS CARE. DENIES HE WILL HAVE ANY NEEDS ON DISCHARGE. PLAN IS TO RETURN HOME WHEN MEDICALLY STABLE. WILL CONTINUE TO FOLLOW. DENA TAYLOR
--- NOTE | 2019-07-25 19:48 | NUR ---
PT'S BP ELEVATED 178/98 MANUALLY. HR 87. PO METOPROLOL AND APRESOLINE SCHEDULED FOR 2200 GIVEN AT THIS TIME. WILL MONITOR EFFECTIVENESS. PT EDUCATED ON S/S TO NOTIFY RN. VERBALIZES UNDERSTANDING. ALL LIGHT IN REACH.
--- NOTE | 2019-07-25 20:56 | NUR ---
BLOOD PRESSURE IMPROVED FOLLOWING MEDICATIONS. PT DENIES ANY SYMPTOMS. WILL CONTINUE TO MONITOR. IV VANC INFUSION COMPLETE AT THIS TIME. IV SITE FLUSHING WITHOUT DIFFICULTY. PT DENIES ANY NEEDS. CALL LIGHT LEFT IN REACH.
[2019-07-26] VITALS: BP 176/101
[2019-07-26 00:10] VITALS: BP 142/82
--- NOTE | 2019-07-26 02:20 | NUR ---
PT HAD EPISODE OF BOWEL INCONTINENCE. PATIENT CURRENTLY IN SHOWER WITH IV SITE WRAPPED. PT REMOVED BL FOOT DRESSINGS/TUBI X RAY CONSULTANT. WILL REPLACE WHEN SHOWER IS COMPLETE. NEW BED LINENS/GOWN/CHUCKS PROVIDED. BREIF ALSO PROVIDED PER REQUEST. WILL MONITOR.
--- NOTE | 2019-07-26 04:03 | NUR ---
DRESSINGS TO BL FEET/LEGS CHANGED PER ORDER. PT TOLERATED WELL. WILL MONITOR. CALL LIGHT IN REACH.
[2019-07-26 06:49] LABS: CREATININE 4.5 mg/dL (0.70-1.30); POTASSIUM 4.6 mmol/L (3.5-5.1)
[2019-07-26 08:00] VITALS: BP 155/77
--- NOTE | 2019-07-26 10:10 | NUR ---
PODIATRY RESIDENT IN TO CHANGE BLLE WOUND DRESSINGS.
[2019-07-26] MEDS ORDERED: DOXYCYCLINE100 M3 PO (10:55)
--- NOTE | 2019-07-26 11:09 | NUR ---
REFUSED DISCHARGE WOUND CARE PICS/MEASUREMENTS WOUNDS WERE ALREADY CHANGED TODAY BY PODIATRY.
--- NOTE | 2019-07-26 11:32 | NUR ---
Discharge instructions reviewed with patient/family. Patient receptive and verbalizes understanding. Follow-up care arranged. Written instructions given to patient/family. PARAG MCNEILL
--- NOTE | 2019-07-26 12:50 | NUR ---
RESUME ORDERED FAXED TO [facility].
== END 2019-07-26 11:32 | disposition home health service (06) | DRG 469 ==
LOC: ED 15:16 → EDHOLD 16:30 → 5E 16:30
PROVIDERS: Emergency Medicine; Internal Medicine; ADMIT Internal Medicine
PROC: 4A02XM4 Measurement of Cardiac Total Activity, External Approach (ICD-10-PCS; principal; 2019-07-24)
PROC: 3E073KZ Introduction of Other Diagnostic Substance into Coronary Artery, Percutaneous Approach (ICD-10-PCS; 2019-07-24)
PROC: 0H9NXZZ Drainage of Left Foot Skin, External Approach (ICD-10-PCS; 2019-07-24)
DX: N17.9 Acute kidney failure, unspecified (principal); L03.115 Cellulitis of right lower limb; I25.110 Atherosclerotic heart disease of native coronary artery with unstable angina pectoris; L03.116 Cellulitis of left lower limb; E43 Unspecified severe protein-calorie malnutrition; E87.1 Hypo-osmolality and hyponatremia; D64.9 Anemia, unspecified; E11.65 Type 2 diabetes mellitus with hyperglycemia; E83.41 Hypermagnesemia; N18.5 Chronic kidney disease, stage 5; I12.0 Hypertensive chronic kidney disease with stage 5 chronic kidney disease or end stage renal disease; E11.22 Type 2 diabetes mellitus with diabetic chronic kidney disease; K21.9 Gastro-esophageal reflux disease without esophagitis; E11.42 Type 2 diabetes mellitus with diabetic polyneuropathy; F32.9 Major depressive disorder, single episode, unspecified; F41.9 Anxiety disorder, unspecified; I87.2 Venous insufficiency (chronic) (peripheral); E83.39 Other disorders of phosphorus metabolism; B95.62 Methicillin resistant Staphylococcus aureus infection as the cause of diseases classified elsewhere; E66.01 Morbid (severe) obesity due to excess calories; E11.51 Type 2 diabetes mellitus with diabetic peripheral angiopathy without gangrene; S90.822A Blister (nonthermal), left foot, initial encounter; X58.XXXA Exposure to other specified factors, initial encounter; Y93.89 Activity, other specified; Y92.89 Other specified places as the place of occurrence of the external cause; Y99.8 Other external cause status; I25.2 Old myocardial infarction; Z79.4 Long term (current) use of insulin; Z68.41 Body mass index [BMI] 40.0-44.9, adult; Z91.048 Other nonmedicinal substance allergy status; Z83.3 Family history of diabetes mellitus; Z79.82 Long term (current) use of aspirin; Z79.899 Other long term (current) drug therapy

== ENCOUNTER → 2019-08-14 | Outpatient (CLI) | payer OTHER ==
[~2019-08-14] MED LIST changes: +ACULAR 0.5%3 ML OPH; +OFLOXACIN 5 ML5 M1 OP; +PRAVASTATIN SOD40 MG PO; +Zaroxolyn,Diul2.5 MG PO
[2019-08-14 11:47] LABS: BASO # 0.1 10*3/uL (0.0-0.1); BASO % 0.8 % (0.0-1.0); EOS # 0.2 10*3/uL (0.0-0.4); EOS % 2.6 % (1.0-4.0); HEMATOCRIT 30.2 % (42.0-52.0); LYMPH # 1.1 10*3/uL (1.3-4.4); LYMPH % 12.2 % (27.0-41.0); MEAN CELL VOLUME 86.3 fl (80.0-94.0); MEAN CORPUSCULAR HGB 27.1 pg (27.0-31.0); MEAN CORPUSCULAR HGB CONC 31.5 g/dl (33.0-37.0); MEAN PLATELET VOLUME 9.3 fl (9.6-12.3); MONO # 0.8 10*3/uL (0.1-1.0); MONO % 9.2 % (3.0-9.0); NEUT # 6.6 10*3/uL (2.3-7.9); NEUT % 74.7 % (47.0-73.0); PLATELET COUNT AUTOMATED 284 10*3/uL (130-400); RED CELL DISTRI WIDTH 14.2 % (0-14.5); WHITE BLOOD COUNT 8.8 10*3/uL (4.8-10.8)
[2019-08-14 12:12] LABS: URINE CREATININE RANDOM 23.6 mg/dL
[2019-08-14 12:16] LABS: ALBUMIN 2.4 gm/dl (3.1-4.5); CREATININE 4.74 mg/dL (0.70-1.30); POTASSIUM 4.7 mmol/L (3.5-5.1)
[2019-08-14 12:35] LABS: PTH INTACT 240.4 pg/mL (18.5-88.0); VITAMIN D, 25-HYDROXY 19.6 ng/mL (30-100)
[2019-08-14 12:41] LABS: BILIRUBIN NEGATIVE (NEGATIVE); BLOOD 2+ (NEGATIVE); CLARITY CLEAR (CLEAR); COLOR YELLOW (YELLOW); GLUCOSE 3+ (NEGATIVE); KETONE NEGATIVE (NEGATIVE); LEUKO ESTERASE NEGATIVE (NEGATIVE); NITRITE NEGATIVE (NEGATIVE); PH 7.5 (5.0-9.0); SPECIFIC GRAVITY 1.015 (1.005-1.030); UROBILINOGEN 0.2 E.U./dl (0.2-1.0)
[2019-08-14 12:42] LABS: BACTERIA TRACE; RBC 21-30 rbc/hpf (0-2)
== END | disposition home or self-care (01) ==
LOC: LAB 11:02
PROVIDERS: Internal Medicine Nephrology
DX: N18.4 Chronic kidney disease, stage 4 (severe) (principal); D63.1 Anemia in chronic kidney disease; E11.22 Type 2 diabetes mellitus with diabetic chronic kidney disease; N25.81 Secondary hyperparathyroidism of renal origin

== ENCOUNTER → 2019-08-22 | Outpatient (CLI) | payer OTHER ==
[2019-08-23 07:15] LABS: HEP B CORE AB, IGM Negative (Negative); HEPATITIS B SURFACE AB Non Reactive (.); HEPATITIS B SURFACE AG Negative (Negative); HEPATITIS C VIRUS ANTIBODY <0.1 s/co (0.0-0.9)
== END | disposition home or self-care (01) ==
LOC: LAB 12:20
PROVIDERS: Internal Medicine Nephrology
DX: N18.5 Chronic kidney disease, stage 5 (principal)

== ENCOUNTER 2019-09-06 00:11 | Emergency (ER) | payer OTHER ==
[~2019-09-06] VITALS: Wt 136.1 kg
[2019-09-06 01:30] LABS: BASO # 0.1 10*3/uL (0.0-0.1); BASO % 0.5 % (0.0-1.0); EOS # 0.2 10*3/uL (0.0-0.4); EOS % 1.7 % (1.0-4.0); HEMATOCRIT 27.4 % (42.0-52.0); LYMPH # 0.8 10*3/uL (1.3-4.4); MEAN CELL VOLUME 85.4 fl (80.0-94.0); MEAN CORPUSCULAR HGB 26.5 pg (27.0-31.0); MEAN PLATELET VOLUME 8.7 fl (9.6-12.3); MONO # 1.2 10*3/uL (0.1-1.0); MONO % 11.5 % (3.0-9.0); NEUT # 7.9 10*3/uL (2.3-7.9); NEUT % 77.9 % (47.0-73.0); PLATELET COUNT AUTOMATED 306 10*3/uL (130-400); RED BLOOD COUNT 3.21 10*6/uL (4.50-5.90); RED CELL DISTRI WIDTH 14.6 % (0-14.5); WHITE BLOOD COUNT 10.1 10*3/uL (4.8-10.8)
[2019-09-06 01:40] LABS: INTERNATIONAL NORM RATIO 1.2 (2.0-3.5)
[2019-09-06 01:45] LABS: CREATININE 4.07 mg/dL (0.70-1.30); POTASSIUM 4.6 mmol/L (3.5-5.1); TOTAL PROTEIN 7.4 gm/dL (6.4-8.2)
== END 2019-09-06 05:26 | disposition home or self-care (01) ==
LOC: ED 00:11
PROVIDERS: Emergency Medicine
DX: R50.9 Fever, unspecified (principal); R05 Cough; M79.10 Myalgia, unspecified site; I25.10 Atherosclerotic heart disease of native coronary artery without angina pectoris; K21.9 Gastro-esophageal reflux disease without esophagitis; I12.9 Hypertensive chronic kidney disease with stage 1 through stage 4 chronic kidney disease, or unspecified chronic kidney disease; E11.22 Type 2 diabetes mellitus with diabetic chronic kidney disease; N18.4 Chronic kidney disease, stage 4 (severe); Z79.899 Other long term (current) drug therapy; Z79.4 Long term (current) use of insulin; Z79.82 Long term (current) use of aspirin

== ENCOUNTER → 2019-09-06 | Emergency (ER) | payer OTHER | LOC: ED 22:50 | DX: R50.9 Fever, unspecified (principal); Z53.21 Procedure and treatment not carried out due to patient leaving prior to being seen by health care provider ==